=== PATIENT | female | born 1930 | race Caucasian/White ===

== ENCOUNTER → 2016-04-29 | Outpatient (CLI) | payer OTHER, MEDICARE ==
[~2016-04-29] MED LIST: ADULT LOW DOSE81 M1 PO; AMARYL2 MG PO; AMLODIPINE BESYL5 MG PO; ASCORBIC ACID500 M3 PO; ASPIR-TRIN325 M1 PO; ASPIRIN EC325 MG PO; ASPIRIN81 M2 PO; Ascorbic Acid,Ester- PO; BISACODYL5 MG PO; BUPROPION XL300 MG PO; CELEXA20 MG PO; CELEXA40 MG PO; CENTRUM SILV1 TABLET PO; CENTRUM SILVER1 EAC3 PO; CITALOPRAM HBR20 MG PO; CLOBETASOL PROP60 GM TP; COLACE100 MG PO; Cepacol Lozenge, Sor MM; Colace PO; DAILY VALUE1 EACH PO; DOXYCYCLINE HY100 MG PO; DULCOLAX5 MG PO; DUONEB 2.5-0.5 M3 ML AEROSOL; ECOTRIN325 MG PO; EFFEXOR XR150 MG PO; ENDOCET 5-3251 EACH PO; Ecotrin PO; Effexor XR PO; FISH OIL 1,0001 EAC7 PO; FISH OIL300 MG PO; GLUCOTROL5 MG PO; HYDROCHLOROTH12.5 M1 PO; JANUVIA25 M1 PO; JANUVIA25 MG PO; KEFLEX500 MG PO; LEVAQUIN500 MG PO; LEVEMIR FL100 UNIT/1 SC; LEVEMIR100 UNIT/2 SC; LEVOFLOXACIN750 MG PO; LIDOCAINE700 MG TD; LIDODERM 5% P1 PATCH TD; LITE COAT ASPI325 M1 PO; LO-DOSE ASPIRIN81 M1 PO; LOPRESSOR50 MG PO; LOW DOSE ASPIRI81 M1 PO; Lopressor PO; METOPROLOL TART50 MG PO; MYCOSTATIN15 GM TP; NOVOLOG MI100 UNIT/2 SQ; NOVOLOG MI100 UNIT/3 SQ; NOVOLOG MI100 UNIT/M SC; NYSTATIN15 GM TP; PERCOCET 5/31 TABLET PO; PLAVIX75 MG PO; PRANDIN0.5 MG PO; REPAGLINIDE0.5 MG PO; SENNA S TABLET1 EACH PO; SENOKOT S,PE1 TABLET PO; SILTUSSIN100 MG/51 PO; SIMVASTATIN40 MG PO; TAMIFLU30 MG PO; THERAGRAN1 TABLET PO; Tylenol Regular Stre PO; VITAMIN C1000 MG PO; VITAMIN C500 M4; VITAMIN D1000 INTUN PO; VITAMIN D2000 UNIT PO; VITAMIN D31000 UNI2 PO; VITAMIN D31000 UNIT PO; Vitamin D PO; WELLBUTRIN XL150 MG PO; WELLBUTRIN XL300 MG PO; ZESTRIL,PRINIVI10 M1 PO; ZOCOR40 MG PO; ZOCOR80 M1 PO; ZOCOR80 MG PO; Zocor PO; celeXA PO
== END ==
LOC: RAD 04-26 11:00
DX: G31.9 Degenerative disease of nervous system, unspecified (principal); J32.9 Chronic sinusitis, unspecified; R51 Headache
CPT/HCPCS: 70450